=== PATIENT | female | born 1970 | race Caucasian/White ===

== ENCOUNTER 2018-10-09 08:15 | Inpatient (IN) | payer OTHER ==
[~2018-10-09] VITALS: Ht 165.1 cm; Wt 62.6 kg
[2018-10-09] MEDS ORDERED: GABAPENTIN800 MG PO (10:11)
[2018-10-09] MEDS ORDERED: GABAPENTIN400 MG PO (10:11)
[2018-10-09] MEDS ORDERED: CELEXA20 MG PO (10:12)
[2018-10-09] MEDS ORDERED: CATAFLAN PO (10:12)
[2018-10-09] MEDS ORDERED: CLONAZEPAM1 M1 PO (10:13)
[2018-10-09] MEDS ORDERED: ZYRTEC10 M3 PO (10:13)
[2018-10-09] MEDS ORDERED: SINGULAIR10 MG PO (10:13)
[2018-10-09] MEDS ORDERED: ZANTAC300 MG PO (10:14)
[2018-10-09] MEDS ORDERED: PRILOSEC OTC20 MG PO (10:14)
[2018-10-09] MEDS ORDERED: ZANAFLEX4 M1 PO (10:15)
[2018-10-16] MEDS ORDERED: DICLOFENAC SODI25 MG PO (08:05)
== END 2018-10-21 14:21 | disposition home or self-care (01) | DRG 330 ==
LOC: O/R 10-16 06:09 → SURH 10-16 06:09
PROVIDERS: ADMIT Colon & Rectal Surgery
PROC: 0TQB4ZZ Repair Bladder, Percutaneous Endoscopic Approach (ICD-10-PCS; 2018-10-16)
PROC: 0UQG4ZZ Repair Vagina, Percutaneous Endoscopic Approach (ICD-10-PCS; 2018-10-16)
PROC: 0DBU4ZZ Excision of Omentum, Percutaneous Endoscopic Approach (ICD-10-PCS; 2018-10-16)
PROC: 0DJD8ZZ Inspection of Lower Intestinal Tract, Via Natural or Artificial Opening Endoscopic (ICD-10-PCS; 2018-10-16)
PROC: 0DTN4ZZ Resection of Sigmoid Colon, Percutaneous Endoscopic Approach (ICD-10-PCS; principal; 2018-10-16 07:00)
PROC: BT10ZZZ Fluoroscopy of Bladder (ICD-10-PCS; 2018-10-20)
DX: K57.32 Diverticulitis of large intestine without perforation or abscess without bleeding (principal); K63.2 Fistula of intestine; K91.72 Accidental puncture and laceration of a digestive system organ or structure during other procedure; N73.6 Female pelvic peritoneal adhesions (postinfective); N80.5 Endometriosis of intestine